=== PATIENT | female | born 1985 | race African-American/Black ===

== ENCOUNTER → 2017-02-21 | Outpatient (CLI) | payer MEDICAID | LOC: FIMAGING 10:19 | PROVIDERS: ATTEND Physician Assistant | DX: N63 Unspecified lump in breast (principal) ==

== ENCOUNTER 2017-08-16 18:08 | Emergency (ER) | payer MEDICAID ==
[2017-08-16] MEDS ORDERED: IPRATROPIUM/ALBUTEROL 3 ML DEYVIAL ONE (18:30)
[2017-08-16] MEDS ORDERED: IPRATROPIUM/ALBUTEROL 3 ML DEYVIAL IH ONE (18:31)
[2017-08-16] MEDS ORDERED: NS 1,000 ML IV ONE (18:35)
--- NOTE | 2017-08-16 18:35 | EDPHY ---
H & P Stated Complaint: Cough x 1 day HPI/ROS: CHIEF COMPLAINT: Cough, shortness of breath HISTORY OF PRESENT ILLNESS: Patient complains of cough and shortness of breath. This started yesterday. [id number]. Now severe. Worse with laying down. Improved sitting up. It is a harsh productive cough. Difficulty taking deep breath. Subjective fever. No nausea or vomiting. No chest pain. No abdominal complaints. No erythema or edema of the extremities. No rash. No recent travel, trauma or surgery. No history of venous thrombolic event. No improvement with over-the- counter TheraFlu or NyQuil. No other associated complaints or modifying factors. REVIEW OF SYSTEMS: Ten systems reviewed and are negative unless otherwise noted in the HPI PCP: [facility] SPECIALISTS: None PAST MEDICAL HISTORY: Type 2 diabetic now insulin-dependent PAST SURGICAL HISTORY: None SOCIAL HISTORY: Nonsmoker. Originally from [facility]. Living in [place] for living years. FAMILY HISTORY: Noncontributory EXAMINATION General Appearance: Alert, no distress Head: normocephalic, atraumatic Eyes: Pupils equal and round, no conjunctival pallor or injection ENT, Mouth: Mucous membranes moist. Airway patent. No erythema or edema Neck: Normal inspection, supple, non-tender. Painless range of motion all planes. No meningismus or rigidity Respiratory: The extensive rhonchi and crackles throughout. No diminishment. No retractions. No tachypnea. No distress. Cardiovascular: Tachycardic rate. Regular rhythm. No murmur. Pulses intact distally Gastrointestinal: Abdomen is soft and nontender Back: non-tender, no bony abnormalities Neurological: A&O, nonfocal, normal gait Skin: Warm and dry, no rash no petechiae or purpura Extremities: Nontender, no pedal edema Psychiatric: Mood and affect normal DIFFERENTIAL DIAGNOSES: Including but not limited to pneumonia, bronchitis, influenza, PE, pericarditis , pleurisy MDM: 6:35 p.m. Cough, shortness of breath with examination that suggest pneumonia versus bronchitis versus influenza. She is tachycardic but not tachypneic. She is not febrile. She is not hypoxic or hypotensive. She does not meet SIRS criteria at this time. Extensive wheezing and crackles, thus I have ordered DuoNeb treatment. Chest x-ray has been ordered. Laboratory studies were. She is awake and alert and conversing appropriately. Her symptoms appear to be related to infection. She is in no acute distress. Case discussed with Dr. Veliz. 7:30 p.m. Patient re-evaluated. Wheezing has improved. Vital signs are improving. I have listened to her lungs again and they sound significantly improved from previous examination. Chest x-ray reveals no evidence of pneumonia and suggest viral etiology. Influenza test is pending. 8:35 p.m. Acute bronchitis without evidence of pneumonia. Influenza was negative. She is feeling significantly better at this time with only a mild headache. Her lungs are clear in all jesus this time. Discussed discharge home with 1st dose of Zithromax and prednisone here. She will be discharged home with an albuterol inhaler with instructions. Prescription for the remaining Zithromax and for 2 more days of steroid. We discussed close monitoring of her blood sugar. We discussed follow-up with [facility] on Saturday or Saturday. We discussed return to ED precautions. She is comfortable this plan. She is discharged home stable condition. This plan was discussed with Dr. Veliz and she is in agreement. Source: Patient Exam Limitations: No limitations - Personal History LMP (Females 10-55): 8-14 Days Ago Current Tetanus/Diphtheria Vaccine: Yes Current Tetanus Diphtheria and Acellular Pertussis (TDAP): Yes - Medical/Surgical History Hx Asthma: No Hx Chronic Respiratory Disease: No Hx Diabetes: No Hx Cardiac Disease: No Hx Renal Disease: No Hx Cirrhosis: No Hx Alcoholism: No Hx HIV/AIDS: No Hx Splenectomy or Spleen Trauma: No Other PMH: denies - Social History Smoking Status: Never smoked Constitutional: Initial Vital Signs Temperature (C) 99.0 F 08/16/17 18:14 Heart Rate 110 H 08/16/17 18:14 Respiratory Rate 19 08/16/17 18:14 Blood Pressure 133/86 H 08/16/17 18:14 O2 Sat (%) 94 08/16/17 18:14 O2 Delivery Mode Room Air Allergies/Adverse Reactions: No Known Allergies Allergy (Verified 03/14/15 14:52) Home Medications: Medication Instructions Recorded Azithromycin [Zithromax] 250 mg PO DAILY #4 tab 08/16/17 INSULIN REGULAR, HUMAN 08/16/17 Ibuprofen 600 mg PO Q8 PRN #15 tablet 08/16/17 Metformin 1000 mg 08/16/17 predniSONE [Deltasone] 60 mg PO DAILY #9 tablet 08/16/17 Medical Decision Making - Diagnostics Imaging Results: Imaging Impressions Chest X-Ray 08/16/17 18:35 Impression: Prominence of perihilar interstitial markings and peribronchial cuffing. Findings are nonspecific but can be seen with bronchitis, reactive airway disease, or viral process. - Data Points Laboratory Results: Laboratory Results 08/16/17 18:48 08/16/17 18:48 08/16/17 08/16/17 08/16/17 18:48 18:48 18:48 WBC 13.96 10^3/uL H 10^3/uL (3.80-9.50) RBC 4.63 10^6/uL 10^6/uL (4.18-5.33) Hgb 12.0 g/dL L g/dL (12.6-16.3) Hct 36.5 % L % (38.0-47.0) MCV 78.8 fL L fL (81.5-99.8) MCH 25.9 pg L pg (27.9-34.1) MCHC 32.9 g/dL g/dL (32.4-36.7) RDW 16.2 % H % (11.5-15.2) Plt Count 302 10^3/uL 10^3/uL (150-400) MPV 10.1 fL fL (8.7-11.7) Neut % (Auto) 81.0 % H % (39.3-74.2) Lymph % (Auto) 10.5 % L % (15.0-45.0) [place] % (Auto) 5.9 % % (4.5-13.0) Eos % (Auto) 2.0 % % (0.6-7.6) Baso % (Auto) 0.2 % L % (0.3-1.7) Nucleat RBC Rel Count 0.0 % % (0.0-0.2) Absolute Neuts (auto) 11.32 10^3/uL H 10^3/uL (1.70-6.50) Absolute Lymphs (auto) 1.46 10^3/uL 10^3/uL (1.00-3.00) Absolute Monos (auto) 0.82 10^3/uL H 10^3/uL (0.30-0.80) Absolute Eos (auto) 0.28 10^3/uL 10^3/uL (0.03-0.40) Absolute Basos (auto) 0.03 10^3/uL 10^3/uL (0.02-0.10) Absolute Nucleated RBC 0.00 10^3/uL 10^3/uL (0-0.01) Immature Gran % 0.4 % % (0.0-1.1) Immature Gran # 0.05 10^3/uL 10^3/uL (0.00-0.10) Sodium 136 mEq/L mEq/L (134-144) Potassium 4.1 mEq/L mEq/L (3.5-5.2) Chloride 103 mEq/L mEq/L (97-110) Carbon Dioxide 23 mEq/l mEq/l (22-31) Anion Gap 10 mEq/L mEq/L (8-16) BUN 5 mg/dL L mg/dL (7-23) Creatinine 0.6 mg/dL mg/dL (0.6-1.0) Estimated GFR > 60 Glucose 110 mg/dL H mg/dL (70-100) Calcium 9.8 mg/dL mg/dL (8.5-10.4) Beta HCG, Qual NEGATIVE Influenza A & B (PCR) 08/16/17 18:38 WBC RBC Hgb Hct MCV MCH MCHC RDW Plt Count MPV Neut % (Auto) Lymph % (Auto) [place] % (Auto) Eos % (Auto) Baso % (Auto) Nucleat RBC Rel Count Absolute Neuts (auto) Absolute Lymphs (auto) Absolute Monos (auto) Absolute Eos (auto) Absolute Basos (auto) Absolute Nucleated RBC Immature Gran % Immature Gran # Sodium Potassium Chloride Carbon Dioxide Anion Gap BUN Creatinine Estimated GFR Glucose Calcium Beta HCG, Qual Influenza A & B (PCR) NEGATIVE FOR FLU (NEGATIVE) Medications Given: Discontinued Medications Albuterol Sulfate (Proventil Inh Prepack) 1 mdi TAKEHOME EDNOW ONE Stop: 08/16/17 20:34 Last Admin: 08/16/17 20:55 Dose: 1 mdi Albuterol/Ipratropium (Duoneb) 3 ml IH EDNOW ONE Stop: 08/16/17 18:32 Last Admin: 08/16/17 18:36 Dose: 3 ml Azithromycin (Zithromax) 500 mg PO EDNOW ONE PRN Reason: Protocol Stop: 08/16/17 20:34 Last Admin: 08/16/17 20:55 Dose: 500 mg Sodium Chloride (Ns) 1,000 mls @ 0 mls/hr IV ONCE ONE; Wide Open PRN Reason: Protocol Stop: 08/16/17 18:36 Last Admin: 08/16/17 18:46 Dose: 1,000 mls Ibuprofen (Motrin) 600 mg PO EDNOW ONE Stop: 08/16/17 20:38 Last Admin: 08/16/17 20:55 Dose: 600 mg Prednisone (Prednisone) 60 mg PO EDNOW ONE Stop: 08/16/17 20:34 Last Admin: 08/16/17 20:55 Dose: 60 mg Departure - Departure Disposition: Home, Routine, Self-Care Clinical Impression: Insulin dependent diabetes mellitus Acute bronchitis Qualifiers: Bronchitis organism: unspecified organism Qualified Code(s): J20.9 - Acute bronchitis, unspecified Condition: Good Instructions: How to Use a Metered-Dose Inhaler (ED), Acute Bronchitis (ED) Additional Instructions: 1. Ibuprofen 600 mg every 8 hours as needed 2. Increase fluid intake 3. Continue taking Zithromax as prescribed starting tomorrow 4. Continue taking prednisone as prescribed to completion 5. ED precautions as discussed 6. Follow up with primary care physician on Saturday or Saturday Referrals: Chloe Lawler [Primary Care Provider] - As per Instructions Prescriptions: Azithromycin [Zithromax] 250 mg PO DAILY #4 tab Ibuprofen 600 mg PO Q8 PRN #15 tablet PRN Reason: Pain, Mild predniSONE [Deltasone] 60 mg PO DAILY #9 tablet
[2017-08-16 19:06] LABS: % IMMATURE GRANULYOCYTES 0.4 % (0.0-1.1); ABSOLUTE IMMATURE GRANULOCYTES 0.05 10^3/uL (0.00-0.10); ADD DIFF? NO; ADD MORPH? NO; ADD SCAN? NO; ATYPICAL LYMPHOCYTE FLAG 0 (0-99); FRAGMENT RBC FLAG 0 (0-99); HEMATOCRIT 36.5 % (38.0-47.0); LEFT SHIFT FLG 20 (0-99); LIPEMIA HEMOLYSIS FLAG 80 (0-99); MEAN CELL HEMOGLOBIN 25.9 pg (27.9-34.1); MEAN CELL HEMOGLOBIN CONCENTR. 32.9 g/dL (32.4-36.7); MEAN CELL VOLUME 78.8 fL (81.5-99.8); MEAN PLATELET VOLUME 10.1 fL (8.7-11.7); PLATELET CLUMPS FLAG 0 (0-99); PLATELET COUNT 302 10^3/uL (150-400); RED BLOOD CELL COUNT 4.63 10^6/uL (4.18-5.33); RED CELL DISTRIBUTION WIDTH 16.2 % (11.5-15.2)
[2017-08-16 19:19] LABS: ANION GAP 10 mEq/L (8-16); CALCIUM 9.8 mg/dL (8.5-10.4); CARBON DIOXIDE 23 mEq/l (22-31); CHLORIDE 103 mEq/L (97-110); CREATININE 0.6 mg/dL (0.6-1.0); GLOMERULAR FILTRATION RATE > 60; GLUCOSE 110 mg/dL (70-100); POTASSIUM 4.1 mEq/L (3.5-5.2); SODIUM 136 mEq/L (134-144)
[2017-08-16] MEDS ORDERED: predniSONE 20 MG TAB PO ONE (20:33)
[2017-08-16] MEDS ORDERED: AZITHROMYCIN 250 MG TAB PO ONE (20:33)
[2017-08-16] MEDS ORDERED: ALBUTEROL INH PREPACK MDI TAKEHOME ONE (20:33)
[2017-08-16] MEDS ORDERED: IBUPROFEN 600 MG TAB PO ONE (20:37)
[2017-08-16 21:05] VITALS: BP 122/84; PULSE 108; RESP 16; TEMP 98.2; O2SAT 96
== END 2017-08-16 21:04 | disposition home or self-care (01) ==
DX: J20.9 Acute bronchitis, unspecified (principal); E11.9 Type 2 diabetes mellitus without complications; E86.9 Volume depletion, unspecified; Z79.4 Long term (current) use of insulin; Z79.84 Long term (current) use of oral hypoglycemic drugs

== ENCOUNTER → 2017-08-23 | Outpatient (CLI) | payer MEDICAID | LOC: FIMAGING 08:38 | PROVIDERS: ATTEND Physician Assistant | DX: N63.0 Unspecified lump in unspecified breast (principal) ==

== ENCOUNTER 2019-04-09 11:19 | Day surgery (SDC) | payer MEDICAID ==
[2019-04-09] MEDS ORDERED: LR 1,000 ML IV ONE (11:21)
[2019-04-09] MEDS ORDERED: LIDOCAINE 1% 300 MG/30 ML SDV ONE (12:03)
[2019-04-09] MEDS ORDERED: BUPIVACAINE 0.5% 30 ML SDV ONE (12:03)
[2019-04-09] MEDS ORDERED: MIDAZOLAM 2 MG/2 ML VIAL IVP ONE (12:04)
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
--- NOTE | 2019-04-09 12:16 | PDHPUP ---
History & Physical Update H&P update statement: This history and physical update is based on an assessment of the patient which was completed after admission or registration (within 24 hours), but prior to the surgery/procedure. H&P update: H&P reviewed & patient examined, no change in patient's condition since H&P completed
[2019-04-09] MEDS ORDERED: PROPOFOL/EMULSION 500 MG/50 ML BOTTLE IV ONE (12:21)
[2019-04-09] MEDS ORDERED: fentaNYL 250 MCG/5 ML INJ ONE (12:21)
[2019-04-09] MEDS ORDERED: ONDANSETRON 4 MG/2 ML VIAL ONE (12:35)
[2019-04-09] MEDS ORDERED: KETOROLAC 30 MG/1 ML SDV ONE (12:35)
[2019-04-09] MEDS ORDERED: ROCURONIUM 100 MG/10 ML VIAL ONE (12:35)
[2019-04-09] MEDS ORDERED: oxyCODONE IR 5 MG TAB PO PRN (13:48)
[2019-04-09] MEDS ORDERED: ONDANSETRON 4 MG/2 ML VIAL IVP PRN (13:48)
[2019-04-09] MEDS ORDERED: HYDROmorphONE/DILAUDID 1 MG/ML INJ IVP PRN (13:48)
[2019-04-09] MEDS ORDERED: NALOXONE HCL 0.4 MG/ML INJ IVP PRN (13:48)
[2019-04-09] MEDS ORDERED: fentaNYL 100 MCG/2 ML INJ IVP PRN (13:48)
[2019-04-09] MEDS ORDERED: SUGAMMADEX SODIUM 200 MG/2 ML VIAL IVP ONE (13:52)
--- NOTE | 2019-04-09 14:03 | POSTOPPROG ---
Post Op Note Date of Operation: 04/09/19 Surgeon: Ady Lester Exchange Consultant: Sarah Heart PA-C Anesthesiologist: Christian Anesthesia: GET(General Endotracheal) Pre-op Diagnosis: vetrnal hernia Post-op Diagnosis: same 7 cm Procedure: Open Retrorectus Hernia repair with 10x15 cm symbotex mesh Inf/Abcess present in the surg proc area at time of surgery?: No EBL: Minimal Complications: none Specimen(s): none
[2019-04-09] MEDS ORDERED: fentaNYL 100 MCG/2 ML INJ ONE (14:23)
[2019-04-09] MEDS ORDERED: oxyCODONE IR 5 MG TAB ONE (14:24)
[2019-04-09 15:30] VITALS: BP 121/86
--- NOTE | 2019-04-09 18:55 | GOP ---
[f rep st] OPERATIVE REPORT DATE OF OPERATION: SURGEON: Ady Lester MD FORK TRUCK DRIVER: Sarah Heart PA-C. Use of a miller first is standard and required for the safety. ANESTHESIA: General endotracheal anesthesia. ANESTHESIOLOGIST: Dr. Gonzales. PREOPERATIVE DIAGNOSIS: Ventral hernia. POSTOPERATIVE DIAGNOSIS: Ventral hernia. PROCEDURE PERFORMED: Retrorectus ventral hernia repair with 15 x 10 cm Symbotex mesh. FINDINGS: SPECIMENS: Hernia sac, not sent to pathology. ESTIMATED BLOOD LOSS: Approximately 50 mL. DESCRIPTION OF PROCEDURE: The patient was brought to the operating room. After induction of endotra cheal anesthesia in a supine position, her abdomen was prepped with chlorhexidine and draped sterilel y. Time-out procedure is then performed according to institutional standards. Local anesthetic is i nfused in the skin and subcutaneous tissues and an incision is made around the umbilicus and in the e pigastric region in a vertical fashion. This is deepened with electrocautery and the hernia sac is i dentified, circumferentially dissected out. The hernia sac is large, approximately 15 x 10 cm with i ncarcerated omentum and small bowel. This is reduced into the abdominal cavity. Circumferential dis section of the fascia is performed. A retrorectus placement is decided to be performed and noting a little lower at the level of the umbilicus, there is a small umbilical hernia. This is also reduced and the fascia is opened to the level of the umbilicus inferiorly and superiorly to about 2 cm above the level of the hernia defect. The retrorectal space is entered and 5 cm is dissected on either. H emostasis is assured. The posterior fascia is then reapproximated using 0 PDS and ensured to be hemo static. After insuring the tension-free reapproximation of the posterior fascia, the mesh is then fa shioned to the posterior fascia using 3-0 PDS in an interrupted fashion. The mesh is split superiorl y-inferiorly to allow the mesh to overlap by 2 cm above and below the level of the superior and infer ior aspects of the fascial incision. After ensuring needle, instrument and sponge counts are correct , the anterior fascia is closed using 0 Vicryl. The space is reapproximated using 2-0 Vicryl an d 3-0 Vicryl. The deep dermis is reapproximated in interrupted fashion and the skin is reapproximate d using 4-0 Monocryl in a running fashion. Dermabond is applied. The patient is awakened, extubated and taken to the recovery room in stable condition. No immediate complications. This is a 33-year-old woman who presented to the hospital for elective repair of a symptomatic large ventral hernia. COMPLICATIONS: There were no complications. /[id number]/MODL
== END 2019-04-09 15:31 | disposition home or self-care (01) ==
LOC: FSGY 11:19
PROVIDERS: ATTEND Surgery
DX: K43.9 Ventral hernia without obstruction or gangrene (principal); D25.9 Leiomyoma of uterus, unspecified
CPT/HCPCS: C1781; J1885; J2250; J2405; J2704; J3010